=== PATIENT | male | born 1950 | race Caucasian/White ===

== ENCOUNTER 2017-12-31 16:17 | Outpatient (CLI) | payer OTHER ==
--- NOTE | 2018-01-01 08:44 | XRAY Report ---
LEFT TOES: 12/31/2017 COMPARISON: No comparison. INDICATION: Dropped a board on left great toe. TECHNIQUE: Three views. FINDINGS: There are mild degenerative changes of the first metatarsophalangeal joint. Normal alignment. No evidence of acute fracture. Soft tissues grossly unremarkable. IMPRESSION: MILD FIRST MTP JOINT OSTEOARTHRITIS. NO ACUTE FINDINGS. TD: 01/01/2018 08:44 [facility]
== END 2017-12-31 16:18 | disposition home or self-care (01) ==
LOC: DI.S 16:17
PROVIDERS: ATTEND Nurse Practitioner Family
DX: M19.072 Primary osteoarthritis, left ankle and foot (principal)
CPT/HCPCS: 73660

== ENCOUNTER 2019-07-03 13:23 | Outpatient (CLI) | payer OTHER ==
[2019-07-03 17:02] LABS: HGB - HEMOGLOBIN 15.6 g/dL (14.0-18.0); MEAN CORPUSCULAR HEMOGLOBIN 32.5 pg (27.0-31.0); MEAN CORPUSCULAR HGB CONC 33.9 g/dL (32.0-36.0); MEAN CORPUSCULAR VOLUME 95.8 fL (80.0-94.0); MEAN PLATELET VOLUME 11.2 fL (7.4-11.4); RED BLOOD COUNT 4.8 10^6/uL (4.70-6.10); RED CELL DISTRIBUTION WIDTH 12.9 % (12.0-15.0); WHITE BLOOD COUNT 7.6 x10^3/uL (4.8-10.8)
[2019-07-03 17:25] LABS: ALBUMIN 4.2 g/dL (3.2-5.5); ALBUMIN/GLOBULIN RATIO 1.5 (1.0-2.2); BILIRUBIN,TOTAL 0.7 mg/dL (0.2-1.0); CALCIUM 9.6 mg/dL (8.5-10.3); CREATININE 0.8 mg/dL (0.6-1.2)
== END 2019-07-03 13:24 | disposition home or self-care (01) ==
LOC: LAB.S 13:23
PROVIDERS: ATTEND Physician Assistant
DX: D37.3 Neoplasm of uncertain behavior of appendix (principal); R10.9 Unspecified abdominal pain
CPT/HCPCS: 36415; 80053; 83690; 85027

== ENCOUNTER 2020-04-11 10:45 | Outpatient (CLI) | payer OTHER ==
[2020-04-11 16:05] LABS: ALBUMIN 4.1 g/dL (3.2-5.5); ALBUMIN/GLOBULIN RATIO 1.5 (1.0-2.2); ALKALINE PHOSPHATASE 75 IU/L (42-121); ALT ALANINE AMINOTRANSFERASE 14 IU/L (10-60); AST ASPARTATE AMINOTRANSFERASE 26 IU/L (10-42); BILIRUBIN,TOTAL 1.1 mg/dL (0.2-1.0); BUN - BLOOD UREA NITROGEN 16 mg/dL (6-20); CALCIUM 9.6 mg/dL (8.5-10.3); CARBON DIOXIDE - CO2 27 mmol/L (21-32); CHLORIDE 103 mmol/L (101-111); CHOL/HDL RATIO 2.6 (<5.0); CHOLESTEROL 115 mg/dL; CREATININE 0.9 mg/dL (0.6-1.2); GLUCOSE 111 mg/dL (70-100); HDL CHOLESTEROL 45 mg/dL; LDL CHOLESTEROL,CALCULATED 45 mg/dL; SODIUM 139 mmol/L (135-145); TOTAL PROTEIN 6.8 g/dL (6.7-8.2); VLDL CHOLESTEROL 25 mg/dL
== END 2020-04-11 10:46 | disposition home or self-care (01) ==
LOC: LAB.S 10:45
PROVIDERS: ATTEND Registered Nurse
DX: I25.10 Atherosclerotic heart disease of native coronary artery without angina pectoris (principal)
CPT/HCPCS: 36415; 80053; 80061; 83721

== ENCOUNTER 2020-12-02 21:01 | Outpatient (CLI) | payer MEDICARE | END 2020-12-02 21:02 | disposition home or self-care (01) | LOC: COV 21:01 | PROVIDERS: ATTEND Internal Medicine Cardiovascular Disease | DX: Z01.812 Encounter for preprocedural laboratory examination (principal); I25.10 Atherosclerotic heart disease of native coronary artery without angina pectoris; Z20.822 Contact with and (suspected) exposure to COVID-19 ==

== ENCOUNTER 2022-02-09 08:00 | Outpatient (CLI) | payer MEDICARE ==
[2022-02-09 15:28] LABS: BASOPHILS % (AUTO) 0.7 %; EOSINOPHILS # (AUTO) 0.2 10^3/uL (0.0-0.7); EOSINOPHILS % (AUTO) 3.1 %; HCT - HEMATOCRIT 46.3 % (42.0-52.0); HGB - HEMOGLOBIN 15.5 g/dL (14.0-18.0); LYMPHOCYTES # (AUTO) 1.6 10^3/uL (1.5-3.5); LYMPHOCYTES % (AUTO) 28.2 %; MEAN CORPUSCULAR HEMOGLOBIN 31.8 pg (27.0-31.0); MEAN CORPUSCULAR HGB CONC 33.5 g/dL (32.0-36.0); MEAN CORPUSCULAR VOLUME 94.9 fL (80.0-94.0); MEAN PLATELET VOLUME 10.9 fL (7.4-11.4); MONOCYTES # (AUTO) 0.6 10^3/uL (0.0-1.0); MONOCYTES % (AUTO) 11.3 %; NEUTROPHILS # (AUTO) 3.1 10^3/uL (1.5-6.6); NEUTROPHILS % (AUTO) 56.5 %; PLT - PLATELET COUNT 193 10^3/uL (130-450); RED BLOOD COUNT 4.88 10^6/uL (4.70-6.10); RED CELL DISTRIBUTION WIDTH 12.8 % (12.0-15.0); WHITE BLOOD COUNT 5.5 x10^3/uL (4.8-10.8)
[2022-02-09 15:52] LABS: ALBUMIN 3.8 g/dL (3.2-5.5); ALBUMIN/GLOBULIN RATIO 1.3 (1.0-2.2); ALKALINE PHOSPHATASE 75 IU/L (42-121); ALT ALANINE AMINOTRANSFERASE 14 IU/L (10-60); AST ASPARTATE AMINOTRANSFERASE 27 IU/L (10-42); BILIRUBIN,TOTAL 0.8 mg/dL (0.2-1.0); BUN - BLOOD UREA NITROGEN 15 mg/dL (6-20); CALCIUM 9.2 mg/dL (8.5-10.3); CARBON DIOXIDE - CO2 27 mmol/L (21-32); CHLORIDE 101 mmol/L (101-111); CHOL/HDL RATIO 2.9 (<5.0); CHOLESTEROL 107 mg/dL; CREATININE 0.9 mg/dL (0.6-1.2); GFR - MDRD 84 (>89); GLUCOSE 99 mg/dL (70-100); HDL CHOLESTEROL 37 mg/dL; LDL CHOLESTEROL,CALCULATED 52 mg/dL; LDL/HDL RATIO 1.4 (<3.6); POTASSIUM 3.9 mmol/L (3.5-5.0); SODIUM 135 mmol/L (135-145); TOTAL PROTEIN 6.7 g/dL (6.7-8.2); TRIGLYCERIDES 90 mg/dL; VLDL CHOLESTEROL 18 mg/dL
== END 2022-02-09 23:59 | disposition home or self-care (01) ==
LOC: LAB.S 08:00
PROVIDERS: ATTEND Registered Nurse
DX: I65.29 Occlusion and stenosis of unspecified carotid artery (principal); Z85.9 Personal history of malignant neoplasm, unspecified
CPT/HCPCS: 36415; 80053; 80061; 82378; 83721; 85025

== ENCOUNTER 2023-01-03 08:52 | Outpatient (CLI) | payer MEDICARE ==
[2023-01-03 15:00] LABS: BUN - BLOOD UREA NITROGEN 19 mg/dL (6-20); CALCIUM 8.9 mg/dL (8.5-10.3); CARBON DIOXIDE - CO2 30 mmol/L (21-32); CHLORIDE 102 mmol/L (101-111); CHOL/HDL RATIO 3.5 (<5.0); CHOLESTEROL 121 mg/dL; CREATININE 1.2 mg/dL (0.6-1.2); GFR - MDRD 60 (>89); GLUCOSE 110 mg/dL (70-100); HDL CHOLESTEROL 35 mg/dL; LDL CHOLESTEROL,CALCULATED 67 mg/dL; LDL/HDL RATIO 1.9 (<3.6); POTASSIUM 4.3 mmol/L (3.5-5.0); SODIUM 139 mmol/L (135-145); TRIGLYCERIDES 96 mg/dL; VLDL CHOLESTEROL 19 mg/dL
== END 2023-01-03 08:53 | disposition home or self-care (01) ==
LOC: LAB.S 08:52
PROVIDERS: ATTEND Internal Medicine Cardiovascular Disease
DX: I10 Essential (primary) hypertension (principal)
CPT/HCPCS: 36415; 80048; 80061; 83721

== ENCOUNTER 2023-01-15 08:20 | Outpatient (CLI) | payer MEDICARE ==
--- NOTE | 2023-01-15 10:41 | XRAY Report ---
PROCEDURE: Knee 3 View RT INDICATIONS: PAIN IN RT KNEE TECHNIQUE: 3 views of the right knee(s) were acquired. COMPARISON: None. FINDINGS: Bones: Mild arthrosis. No displaced fracture or dislocation. Soft tissues: No significant joint effusion. Vascular calcifications. Possible small intra-articular ossified body seen on frontal view. IMPRESSION: Mild degenerative changes. No acute radiographic abnormality. If there is high concern f or further derangement, consider MRI evaluation. Reviewed by: Keith Bailey MD on 01/15/2023 10:40 AM PDT Approved by: Keith Bailey MD on 01/15/2023 10:40 AM PDT Station ID: [id number]
== END 2023-01-15 08:21 | disposition home or self-care (01) ==
LOC: DI.S 08:20
PROVIDERS: ATTEND Registered Nurse
DX: M17.11 Unilateral primary osteoarthritis, right knee (principal)

== ENCOUNTER 2023-04-02 15:39 | Outpatient (CLI) | payer MEDICARE ==
--- NOTE | 2023-04-02 16:46 | XRAY Report ---
PROCEDURE: Cervical Spine 2 View INDICATIONS: CERVICALGIA TECHNIQUE: 3 view(s) of the cervical spine were acquired. COMPARISON: None. FINDINGS: Bones: Mild to moderate degenerative changes. Calcification projecting over C3-C4 on lateral view may represent vascular calcifications from left carotid bulb. No traumatic height loss or subluxation id entified. Soft tissues: There are vascular calcifications. Normal C1 on C2 alignment. IMPRESSION: Mild to moderate degenerative changes. If there is high concern for further derangement, consider MRI evaluation. Significant vascular calcifications of the left carotid bulb noted. Reviewed by: Keith Bailey MD on 04/02/2023 4:45 PM PDT Approved by: Keith Bailey MD on 04/02/2023 4:45 PM PDT Station ID: [id number]
== END 2023-04-02 15:40 | disposition home or self-care (01) ==
LOC: DI.S 15:39
PROVIDERS: ATTEND Nurse Practitioner Family
DX: M47.812 Spondylosis without myelopathy or radiculopathy, cervical region (principal); I25.10 Atherosclerotic heart disease of native coronary artery without angina pectoris

== ENCOUNTER 2023-08-07 08:00 | Outpatient (CLI) | payer MEDICARE ==
--- NOTE | 2023-08-07 19:25 | XRAY Report ---
PROCEDURE: Chest 2 View X-Ray INDICATIONS: SUBSTERNAL CHEST PAIN TECHNIQUE: 2 views of the chest were obtained. COMPARISON: None. FINDINGS: Surgical changes and devices: None. Lungs and pleura: No pleural effusions or pneumothorax. Lungs are clear. Mediastinum: Mediastinal contours appear normal. Heart size is normal. Bones and chest wall: No suspicious bony lesions. Overlying soft tissues appear unremarkable. IMPRESSION: Normal two-view chest x-ray Reviewed by: Carlos Alberto Jalloh MD on 08/07/2023 6:24 PM [facility] Approved by: Carlos Alberto Jalloh MD on 08/07/2023 6:24 PM [facility] Station ID: [id number]
== END 2023-08-07 23:59 | disposition home or self-care (01) ==
LOC: DI.S 08:00
PROVIDERS: ATTEND Physician Assistant
DX: R07.2 Precordial pain (principal)

== ENCOUNTER 2024-02-14 11:16 | Outpatient (CLI) | payer MEDICARE ==
[2024-02-14 15:13] LABS: BASOPHILS % (AUTO) 0.7 %; EOSINOPHILS # (AUTO) 0.2 10^3/uL (0.0-0.7); EOSINOPHILS % (AUTO) 3.8 %; HCT - HEMATOCRIT 46.6 % (42.0-52.0); HGB - HEMOGLOBIN 15.2 g/dL (14.0-18.0); LYMPHOCYTES # (AUTO) 1.4 10^3/uL (1.5-3.5); LYMPHOCYTES % (AUTO) 23.7 %; MEAN CORPUSCULAR HEMOGLOBIN 31.1 pg (27.0-31.0); MEAN CORPUSCULAR HGB CONC 32.6 g/dL (32.0-36.0); MEAN CORPUSCULAR VOLUME 95.3 fL (80.0-94.0); MEAN PLATELET VOLUME 10.9 fL (7.4-11.4); MONOCYTES # (AUTO) 0.7 10^3/uL (0.0-1.0); MONOCYTES % (AUTO) 11.9 %; NEUTROPHILS # (AUTO) 3.5 10^3/uL (1.5-6.6); NEUTROPHILS % (AUTO) 59.7 %; PLT - PLATELET COUNT 193 10^3/uL (130-450); RED BLOOD COUNT 4.89 10^6/uL (4.70-6.10); RED CELL DISTRIBUTION WIDTH 12.9 % (12.0-15.0); WHITE BLOOD COUNT 5.8 x10^3/uL (4.8-10.8)
[2024-02-14 15:45] LABS: ALBUMIN 4.1 g/dL (3.2-5.5); ALBUMIN/GLOBULIN RATIO 1.9 (1.0-2.2); BILIRUBIN,TOTAL 0.4 mg/dL (0.2-1.0); CALCIUM 9.5 mg/dL (8.5-10.3); CREATININE 1.1 mg/dL (0.6-1.3); POTASSIUM 4.3 mmol/L (3.5-4.5); TOTAL PROTEIN 6.3 g/dL (6.4-8.9)
== END 2024-02-14 11:17 | disposition home or self-care (01) ==
LOC: LAB.S 11:16
PROVIDERS: ATTEND Internal Medicine Hematology & Oncology
DX: D37.3 Neoplasm of uncertain behavior of appendix (principal)
CPT/HCPCS: 36415; 80053; 82378; 85025

== ENCOUNTER 2024-02-25 12:35 | Emergency (ER) | payer MEDICARE ==
--- NOTE | 2024-02-25 14:06 | ED Physician Documentation ---
History of Present Illness - Stated complaint Stated Complaint: HIGH BP/DIZZINESS - Chief complaint Chief Complaint: General - History obtained from History obtained from: Patient - History of Present Illness Timing: Today Pain level max: 0 Pain level now: 0 - Additonal information Additional information: Patient is a 73-year-old male who presents to the emergency department stating that today when he awoke from sleep he went to pet his dog and felt like the room was spinning around him. Resolves when he remains still, worsen when he moved his head. No numbness, tingling, focal weakness. No headache. No falls. No trauma. He states that the room spinning sensation has since resolved and he feels normal now. He states that he was working in his shop when he decided to check his blood pressure, found it to be 1 70-1 80s systolic and decided he should come and be "evaluated". No chest pain. No shortness of breath. No vision changes. No focal neurological deficits. Has a history of hypertension and has been taking his blood pressure medications at home as prescribed. Review of Systems Constitutional: denies: Fever, Chills Nose: denies: Rhinorrhea / runny nose, Congestion Throat: denies: Sore throat Cardiac: denies: Chest pain / pressure, Palpitations Respiratory: denies: Dyspnea, Cough GI: denies: Abdominal Pain, Nausea, Vomiting, Diarrhea Skin: denies: Rash Musculoskeletal: denies: Neck pain, Back pain Neurologic: denies: Generalized weakness, Focal weakness, Numbness, Syncope, Confused, Headache, Head injury PD PAST MEDICAL HISTORY - Past Medical History Past Medical History: Yes Cardiovascular: Hypertension, High cholesterol, [place] Respiratory: None Neuro: None Endocrine/Autoimmune: None GI: None : None HEENT: None Psych: None Musculoskeletal: None Derm: None - Past Surgical History Past Surgical History: Yes - Present Medications Home Medications: Ambulatory Orders Medication Instructions Recorded Confirmed Aspirin [Brook Chewable Aspirin] 81 mg PO DAILY 01/29/16 02/25/24 Losartan [Cozaar] 50 mg PO DAILY 01/29/16 02/25/24 Omeprazole [PriLOSEC] 20 mg PO DAILY 01/29/16 02/25/24 atenoloL [Atenolol] 25 mg PO DAILY 01/29/16 02/25/24 - Allergies Allergies/Adverse Reactions: Allergies Allergy/AdvReac Type Severity Reaction Status Date / Time No Known Drug Allergies Allergy Verified 02/25/24 12:59 - Social History Does the pt smoke?: No Smoking Status: Never smoker Does the pt drink ETOH?: Yes Does the pt have substance abuse?: No - Immunizations Immunizations are current?: Yes - POLST Patient has POLST: No PD ED PE NORMAL - Vitals Vital signs reviewed: Yes - General General: Alert and oriented X 3, No acute distress - HEENT HEENT: PERRL, Moist mucous membranes - Neck Neck: Supple, no meningeal sign - Cardiac Cardiac: RRR, Strong equal pulses - Respiratory Respiratory: No respiratory distress, Clear bilaterally - Abdomen Abdomen: Soft, Non tender, Non distended - Derm Derm: Warm and dry - Extremities Extremities: No edema, No calf tenderness / cord - Neuro Neuro: Alert and oriented X 3, 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 Normal cerebellar test. No nystagmus.) Eye Opening: Spontaneous Motor: Obeys Commands Verbal: Oriented GCS Score: 15 - Psych Psych: Normal mood, Normal affect Results - Vitals Vitals: Vital Signs - 24 hr 02/25/24 02/25/24 12:52 14:14 Temperature 36.1 C L 36.3 C L Heart Rate 50 L 53 L Respiratory 16 18 Rate Blood Pressure 192/81 H 176/83 H O2 Saturation 100 98 Oxygen O2 Source Room air PD Medical Decision Making - ED course Complexity details: reviewed results, re-evaluated patient, considered differential, d/w patient ED course: Patient with what sounds like benign paroxysmal positional vertigo at home earlier today. Symptoms are fully resolved here. Normal neurological exam. No indication for further testing at this time. In accordance with the [facility] clinical policy from November 2012, this patient has asymptomatic elevated blood pressure without evidence of acute target organ injury. There are also no signs of acute stroke, cardiac ischemia, pulmonary edema, encephalopathy or acute congestive heart failure. Therefore the patient will be referred to their primary care provider for follow-up of their asymptomatic hypertension. Patient counseled regarding signs and symptoms for which I believe and urgent re-evaluation would be necessary. Patient with good understanding of and agreement to plan and is comfortable going home at this time This document was made in part using voice recognition software. While efforts are made to proofread this document, sound alike and grammatical errors may occur. Departure - Departure Disposition: 01 Home, Self Care Clinical Impression: Vertigo Hypertension Qualifiers: Hypertension type: unspecified Qualified Code(s): I10 - Essential (primary) hypertension Condition: Good Instructions: ED HTN Established, ED Vertigo Unspecified Follow-Up: Marilyn Servin ARNP [Primary Care Provider] - Within 1 week Comments: Please follow-up with your doctor for further care. You can continue to check your blood pressure at home and keep a log for your doctor to adjust your medications. Return for severe headaches, numbness, tingling or loss of use of an extremity, facial drooping, chest pain or other new or worrisome symptoms. You also appear to have had an episode of benign paroxysmal positional vertigo this morning that seems to have resolved. Forms: PCP List Discharge Date/Time: 02/25/24 14:14
[2024-02-25 14:18] VITALS: BP 176/83; O2SAT 98
== END 2024-02-25 14:14 | disposition home or self-care (01) ==
LOC: ED 12:35
DX: R42 Dizziness and giddiness (principal); I10 Essential (primary) hypertension; E78.00 Pure hypercholesterolemia, unspecified; I25.2 Old myocardial infarction; Z79.82 Long term (current) use of aspirin; Z79.899 Other long term (current) drug therapy
CPT/HCPCS: 93005; 99283